=== PATIENT | female | born 1995 | race African-American/Black ===

== ENCOUNTER 2022-03-08 05:25 | Emergency (ER) | payer MEDICAID ==
[~2022-03-08] VITALS: Ht 162.6 cm; Wt 57.1 kg
[2022-03-08 05:33] VITALS: BP 122/76
== END 2022-03-08 08:14 | disposition left against medical advice (07) ==
LOC: ER 05:25
DX: Z53.21 Procedure and treatment not carried out due to patient leaving prior to being seen by health care provider (principal); I49.9 Cardiac arrhythmia, unspecified
CPT/HCPCS: 93005